=== PATIENT | male | born 1975 | race American Indian/Alaskan Native ===

== ENCOUNTER 2019-11-21 05:02 | Observation (INO) | payer MEDICARE ==
--- NOTE | 2019-11-21 06:21 | Emergency Department Report ---
HPI - General Chief Complaint: Arrhythmia/Palpitations Time Seen by Provider: 11/21/19 06:08 - HPI HPI: This is a 44-year-old -[place] male presents to the emergency department with a complaint of shortness of breath, lower extremity swelling, and the need for dialysis. Patient has a history of end-stage renal disease on hemodialysis on Tuesday/Tuesday/Tuesday, HIV, congestive heart failure and asthma. He is visiting here from [place] and helping out to take care of his nieces and nephews and may be in [place] for "a while." Patient was dialyzed on Tuesday at [facility]. He denies any fever, chest pain, nausea, vomiting. He has not taken anything for symptoms prior to presentation today. ED Past Medical Hx - Past Medical History Previous Medical History?: Yes Hx Congestive Heart Failure: Yes Hx Renal Disease: Yes (HD MWF) Hx Asthma: Yes Hx HIV: Yes - Surgical History Past Surgical History?: No - Social History Smoking Status: Never Smoker Substance Use Type: Alcohol, Marijuana ED Review of Systems ROS: Stated complaint: NEED DIALYSIS/SOB Other details as noted in HPI Comment: All other systems reviewed and negative Constitutional: denies: chills, fever Eyes: denies: eye pain, vision change ENT: denies: ear pain, throat pain Respiratory: shortness of breath. denies: cough Cardiovascular: edema. denies: chest pain Gastrointestinal: denies: abdominal pain, vomiting Genitourinary: denies: dysuria, discharge Musculoskeletal: denies: back pain, arthralgia Skin: denies: rash, lesions Neurological: denies: headache, weakness Physical Exam - Physical Exam Vital Signs: Vital Signs 11/21/19 11/21/19 05:08 06:08 Temperature 98.0 F Pulse Rate 118 H 110 H Respiratory 20 Rate Blood Pressure 164/124 Blood Pressure 168/125 [left ac] O2 Sat by Pulse 97 98 Oximetry Physical Exam: GENERAL: The patient is well-developed well-nourished. HENT: Normocephalic. Atraumatic. Patient has moist mucous membranes. EYES: Extraocular motions are intact. Pupils equal reactive to light bilaterally. NECK: Supple. Trachea is midline. CHEST/LUNGS: Coarse breath sounds throughout the chest. There is some tachy pnea. Patient has a productive sounding cough with coughing fits. HEART/CARDIOVASCULAR: Regular. There is mild tachycardia. There is no murmur. ABDOMEN: Abdomen is soft, nontender. Patient has normal bowel sounds. SKIN: Skin is warm and dry. 1-2+ pitting edema to the bilateral lower extremities. NEURO: The patient is awake, alert, and oriented. The patient is cooperative. Normal speech. MUSCULOSKELETAL: There is no tenderness or deformity. There is no limitation range of motion. ED Course Vital Signs 11/21/19 11/21/19 05:08 06:08 Temperature 98.0 F Pulse Rate 118 H 110 H Respiratory 20 Rate Blood Pressure 164/124 Blood Pressure 168/125 [left ac] O2 Sat by Pulse 97 98 Oximetry - Consultations Consultation #1: 11/21/19 13:[address] Denise some who will consult on the patient and provide dialysis orders. ED Medical Decision Making - Lab Data Result diagrams: 11/21/19 07:32 11/21/19 07:32 - EKG Data -: EKG Interpreted by Me EKG shows normal: sinus rhythm, axis, intervals, QRS complexes (LVH, Q waves to the septal and anterior leads), ST-T waves Rate: tachycardia (112 bpm) - EKG Data When compared to previous EKG there are: previous EKG unavailable Interpretation: other (Sinus tachycardia at 112 bpm, normal axis, normal interv als, LVH, Q waves to anterior septal leads) - Radiology Data Radiology results: image reviewed interpreted by me: Chest x-ray shows some cardiomegaly, pulmonary vascular congestion and generalized interstitial edema. - Medical Decision Making This patient presents with shortness of breath and lower extremity swelling and requesting dialysis. Patient does have bilateral lower extremity pitting edema and coarse breath sounds. Chest x-ray shows pulmonary vascular congestion and interstitial edema. Labs appear consistent with his end-stage renal disease on hemodialysis. Potassium is 5.2. Patient was given some IV antihypertensive medication and antiemetics. Nephrology was contacted and consulted. The patient will be admitted to the hospital for further evaluation and treatment and was accepted for admission by the hospitalist. During the patient's ED course the patient would have some decreased oxygen saturation as low as 88%. He goes back up immediately with supplemental oxygen, although he is not compliant with nasal cannula and often was seen pulling off his Venturi mask. Critical care attestation.: If time is entered above; I have spent that time in minutes in the direct care of this critically ill patient, excluding procedure time. ED Disposition Clinical Impression: ESRD needing dialysis, Hypoxia Volume overload Qualifiers: Hypervolemia type: unspecified Qualified Code(s): E87.70 - Fluid overload, unspecified Dyspnea Qualifiers: Dyspnea type: shortness of breath Qualified Code(s): R06.02 - Shortness of breath; R06.00 - Dyspnea, unspecified; R06.01 - Orthopnea Hypertension Qualifiers: Hypertension type: renovascular hypertension Qualified Code(s): I15.0 - Renovascular hypertension Disposition: 09 OP ADMIT IP TO THIS HOSP Is pt being admited?: Yes Condition: Serious Time of Disposition: 08:47
[2019-11-21] MEDS ORDERED: ONDANSETRON 4 MG/2 ML INJ IV ONE (06:42)
[2019-11-21] MEDS ORDERED: ONDANSETRON 4 MG/2 ML INJ ONE (06:43)
--- NOTE | 2019-11-21 07:08 | XRay Report ---
CHEST 1 VIEW INDICATION: SOB COMPARISON: None FINDINGS: SUPPORT DEVICES: Hemodialysis catheters tip in the superior vena cava. HEART / MEDIASTINUM: No significant abnormality. LUNGS / PLEURA: Diffuse interstitial pulmonary process. No pneumothorax. ADDITIONAL FINDINGS: IMPRESSION: 1. Diffuse pulmonary edema Signer Name: Serge Decker MD Signed: 11/21/2019 7:04 AM Workstation Name: [id number]
[2019-11-21 08:21] LABS: Hematocrit 30.9 % (35.5-45.6); Hemoglobin 9.9 gm/dl (11.8-15.2); Mean Corpuscular HGB Conc 32 % (32-34); Mean Corpuscular Volume 79 fl (84-94); Platelet Count 141 K/mm3 (140-440); Red Cell Distribution Width 16.2 % (13.2-15.2)
[2019-11-21] MEDS ORDERED: IPRATROPIUM/ALBUTEROL SULFATE 3 ML AMPUL.NEB IH ONE (08:22)
[2019-11-21 08:31] LABS: Calcium 8.6 mg/dL (8.4-10.2)
--- NOTE | 2019-11-21 09:21 | History and Physical Report ---
History of Present Illness Date of examination: 11/21/19 Date of admission: 11/21/19 08:47 Chief complaint: Fluid overload, for hemodialysis Medications and Allergies Allergies Allergy/AdvReac Type Severity Reaction Status Date / Time No Known Allergies Allergy Unverified 11/21/19 05:47 Exam - Constitutional Vitals: Temp Pulse Resp BP Pulse Ox 98.0 F 100 H 20 160/120 93 11/21/19 05:08 11/21/19 08:19 11/21/19 08:19 11/21/19 08:19 11/21/19 08:19 Results - Labs CBC & Chem 7: 11/21/19 07:32 11/21/19 07:32 Labs: Abnormal lab results 11/21/19 11/21/19 Range/Units 07:32 07:32 Hgb 9.9 L (11.8-15.2) gm/dl Hct 30.9 L (35.5-45.6) % MCV 79 L (84-94) fl MCH 25 L (28-32) pg RDW 16.2 H (13.2-15.2) % Sodium 134 L (137-145) mmol/L Potassium 5.2 H (3.6-5.0) mmol/L Carbon Dioxide 16 L (22-30) mmol/L BUN 52 H (9-20) mg/dL Creatinine 12.0 H (0.8-1.3) mg/dL Glucose 105 H (75-100) mg/dL NT-Pro-B Natriuret Pep [id number] H (0-450) pg/mL
[2019-11-21] MEDS ORDERED: ASPIRIN 325 MG TAB PO ONE (11:02)
[2019-11-21] MEDS ORDERED: ASPIRIN 325 MG TAB ONE (11:05)
[2019-11-21 13:30] LABS: Hepatitis B Surface Antigen Non-Reactive (Negative); Hepatitis C Virus Antibody Non-Reactive (NonReactive)
[2019-11-21] MEDS ORDERED: MORPHINE 2 MG/1 ML INJ IV PRN (14:19)
[2019-11-21] MEDS ORDERED: ACETAMINOPHEN 325 MG TAB PO PRN (14:22)
--- NOTE | 2019-11-21 15:23 | Consultation ---
History of Present Illness - Reason for Consult Consult date: 11/21/19 end stage renal disease - History of Present Illness This is a 44-year-old -[place] male who presented to the hospital requesting to be dialyzed and with complaints of shortness of breath. Patient visiting from [place] and did not have dialysis arranged prior to coming to [place]. He received hemodialysis at [facility] on Tuesday. Patient has history of HIV, CHF, Asthma and HTN. We are being consulted for management of this patient's ESRD. Past History Past Medical History: ESRD, hypertension Past Surgical History: Other (RIght IJ perm-cath placement) Social history: no significant social history Family history: no significant family history Medications and Allergies Allergies Allergy/AdvReac Type Severity Reaction Status Date / Time No Known Allergies Allergy Unverified 11/21/19 05:47 Active Meds: Active Medications Acetaminophen (Tylenol) 650 mg PO Q4H PRN PRN Reason: Pain, Mild (1-3) Famotidine (Pepcid) 20 mg PO BID MALCOLM Heparin Sodium (Porcine) (Heparin) 5,000 unit SUB-Q Q12HR MALCOLM Hydralazine HCl (Apresoline) 25 mg PO Q8HR MALCOLM Morphine Sulfate (Morphine) 2 mg IV Q4H PRN PRN Reason: Pain, Moderate (4-6) Nifedipine (Procardia Xl) 60 mg PO Q12HR MALCOLM Exam - Vital Signs Vital signs: Vital Signs Temp Pulse Resp BP Pulse Ox 98.0 F 118 H 20 164/124 97 11/21/19 05:08 11/21/19 05:08 11/21/19 05:08 11/21/19 05:08 11/21/19 05:08 Results - Lab Results 11/21/19 07:32 11/21/19 07:32 Most recent lab results Calcium 8.6 mg/dL (8.4-10.2) 11/21/19 07:32 Assessment and Plan End Stage Renal Disease on hemodialysis: Hyperkalemia: Metabolic Acidosis: -Hemodialysis today for UF and clearance -May need HD again tomorrow -Fluid restriction of 1 liter per day -Obtain daily weights -Renal diet -Monitor I/O's -Assess dialysis needs daily -Patient left AMA Hypertension: -UF with HD -Monitor BP Anemia: -May need Epogen -Monitor H/H
--- NOTE | 2019-11-21 15:54 | Discharge Summary ---
Providers - Providers Date of Admission: 11/21/19 08:47 Attending physician: ABHI CANTU 11/21/19 07:42 Consult to Physician [CONS] Routine Comment: Consulting Provider: ADE JANE Physician Instructions: Reason For Exam: Dialysis Primary care physician: ELROY RODRIGUEZ MD Hospitalization Condition: Serious Disposition: [id number] LEFT AGAINST MED ADVICE Time spent for discharge: 32 min Exam - Constitutional Vitals: Temp Pulse Resp BP Pulse Ox 98.0 F 102 H 100 H 182/117 94 11/21/19 11:30 11/21/19 13:30 11/21/19 11:52 11/21/19 13:30 11/21/19 11:52 Plan Follow up with: PRIMARY CAREMD [Primary Care Provider] - 3-5 Days
[2019-11-21 19:03] VITALS: BP 170/98
[2019-11-21] MEDS ORDERED: HEPARIN 5,000 UNIT/1 ML VIAL SUB-Q SCH (22:00)
[2019-11-21] MEDS ORDERED: hydrALAZINE 25 MG TAB PO SCH (22:00)
[2019-11-21] MEDS ORDERED: FAMOTIDINE 20 MG TAB PO SCH (22:00)
[2019-11-21] MEDS ORDERED: NIFEdipine XL 60 MG TAB PO SCH (22:00)
== END 2019-11-21 15:40 | disposition left against medical advice (07) ==
LOC: ED 05:02 → 3A 08:47
PROVIDERS: ADMIT Internal Medicine; ATTEND Internal Medicine
DX: I13.2 Hypertensive heart and chronic kidney disease with heart failure and with stage 5 chronic kidney disease, or end stage renal disease (principal); N18.6 End stage renal disease; I50.9 Heart failure, unspecified; E87.70 Fluid overload, unspecified; I15.0 Renovascular hypertension; R09.02 Hypoxemia; J45.909 Unspecified asthma, uncomplicated; E87.5 Hyperkalemia; E87.2 Acidosis; D64.9 Anemia, unspecified; Z99.2 Dependence on renal dialysis; Z79.899 Other long term (current) drug therapy
CPT/HCPCS: 36415; 71045; 80048; 80074; 83880; 85025; 93005; 94640; 96374; 96375; 96376; 99285; G0257; G0378; J2405